=== PATIENT | female | born 1965 | race Native Hawaiian/Other Pacific Islander ===

== ENCOUNTER 2021-05-10 12:23 | Outpatient (CLI) | payer OTHER | END 2021-05-10 19:01 | disposition home or self-care (01) | LOC: RAD 12:23 | PROVIDERS: ATTEND Orthopaedic Surgery | DX: M54.59 Other low back pain (principal) ==

== ENCOUNTER 2021-07-22 12:31 | Outpatient (CLI) | payer OTHER | END 2021-07-22 18:57 | disposition home or self-care (01) | LOC: MRI 12:31 | PROVIDERS: ATTEND Orthopaedic Surgery | DX: M54.59 Other low back pain (principal) ==

== ENCOUNTER 2023-01-05 09:04 | Outpatient (CLI) | payer OTHER | END 2023-01-05 19:45 | disposition home or self-care (01) | LOC: MRI 09:04 | PROVIDERS: ATTEND Nurse Practitioner | DX: M54.16 Radiculopathy, lumbar region (principal) ==